=== PATIENT | male | born 1945 | race Caucasian/White ===

== ENCOUNTER → 2018-02-09 | Day surgery (SDC) | payer OTHER | END | disposition home or self-care (01) | LOC: MSO 09:47 | DX: Z12.11 Encounter for screening for malignant neoplasm of colon (principal); Z86.010 Personal history of colon polyps; K57.30 Diverticulosis of large intestine without perforation or abscess without bleeding; I10 Essential (primary) hypertension; Z79.899 Other long term (current) drug therapy; E11.9 Type 2 diabetes mellitus without complications; Z79.84 Long term (current) use of oral hypoglycemic drugs; Z87.891 Personal history of nicotine dependence | CPT/HCPCS: G0105; 00812; J2704; J7030 ==